=== PATIENT | female | born 2000 | race Caucasian/White ===

== ENCOUNTER → 2023-03-19 09:17 | Outpatient (BNVA) | payer BC, SELFPAY | PROVIDERS: PCP Registered Nurse; Visit Provider Physician Assistant ==

== ENCOUNTER 2023-04-04 08:30 | Outpatient (AMB) | payer BC, SELFPAY ==
--- NOTE | 2023-04-04 08:39 | A.OFFVIS_ITS ---
Intake Intake Visit Reasons: TV MWL BMI 35.0 Allergies No Known Allergies Allergy (Verified 03/19/23 09:32) Medication List - Last Reconciled 04/04/23 by Joelle Charles PA-C albuterol sulfate 90 mcg/actuation 1 inh inhalation QID bupropion HCl 150 mg PO DAILY sertraline 50 mg PO DAILY HPI HPI Comments History of Present Illness Details This is a 22 year old woman who wants to start MWL progra. Her goal is to feel better. Wants to lose 50 - 60 lbs. . She reports first being concerned about her weight 2 years ago. She has tried multiple methods of weight loss including exercise, Keto, shakes, without permanent results. She lives with b oyfriend. She works 5 -6 days per week from 8:30 - 4:30. Second job 2-3 d/week 5pm - 7:30 pm. Had labs including TSH done over last 2 months. Pt will get me results of testing. She wakes at: 7am bed at 9:30- 10 am Breakfast: coffee - 2-3 cups with creamer. 9am - bagel with cream cheese Or Yogurt (low fat vanilla) with strawberries Lunch:12 - 1pm - salad with cheese and salami with Caesar dressing. water. brings it with her. Dinner: 7:30 pm - chicken or steak, pasta and green beans or corn. Water or whole milk After dinner: nothing Other snacks: granola bar or pop tarts - but normally doesn't snack. Liquids: Rarely soda, OJ once per month, no other sweetened drinks Alcohol intake: once per week 1-2 Margaritas, tobacco: none, marijuana: none Exercise:none, has stationary bike at home - in storage now control method: IUD STEFFI: 2 ESS:2 GERD:0 QOL: 90 PFSH Surgical History (Updated 03/19/23 @ 09:33 by Sara Mcdonough CMA) Hx of wisdom tooth extraction Hx of colonoscopy Family History (Updated 03/19/23 @ 09:34 by Sara Mcdonough CMA) Mother Breast cancer Melanoma Thyroid condition Father Hypertension Brother No problems noted. Social History (Updated 03/19/23 @ 09:33 by Sara Mcdonough CMA) Alcohol intake: current Alcohol intake frequency: a few times a month Patient Tobacco Use Status: Never used Tobacco Assessment & Plan Assessment & Plan (1) Obesity: Code(s): E66.9 - Obesity, unspecified Plan: This is a 22 yo woman with obesity who will start MWL program. She will start MWL classes and watch them before her next appt with Ayleen. 1. Adequate sleep of 7-8 hours per night discussed 2. Healthy meal plan - stop all sweetened drinks All meals/MR's need to take 20 minutes to complete Coffee - 2% milk 9 am - plain Hungarian 5 oz and 1/2 cup fresh berries 12 pm - salad 8 oz vegetables, 5 oz lean protein. olive oil or avocado oil and vinegar 3 - 3:30 pm- protein bar, 2-3 hb eggs, yogurt 7 pm- dinner of 6 oz lean protein, 8 oz vegetable, 1 serving fruit ETOH drinks - unsweetened Exercise - will get gym membership Cardio 4 d week goal 2,000/week. treadmill at speed 3.0, incline 2-5 - to burn 300 calories. average 10 ayush/min. Stationary bike 1-2 d/week - 200 - 300 over 60 minutes. Pt will purchase body composition analyzer (recommended list given to patient) and weight herself weekly. Next appt with me in 3 weeks. Text me with any questions and weekly weights. Patient is morbidly obese and is not considered stable at this time.?I spent a total of 60 minutes reviewing/updating records, examining the patient and counseling the patient on weight management as detailed above. (2) Anxiety: Code(s): F41.9 - Anxiety disorder, unspecified Plan: exercise (3) Asthma: Code(s): J45.909 - Unspecified asthma, uncomplicated Plan: no changes Telehealth Telehealth Location of provider rendering services: practice address Location of patient: address on file Patient Identification confirmed using: Name, : Yes Telehealth method: video Patient verbally consented to treatment: Yes Patient verbally consented to billing insurance company: Yes Patient informed of any privacy concerns related to visit: Yes Coding Level of Care Code Tele New Pt Level 5 (57646) Diagnoses Obesity E66.9 Anxiety F41.9 Asthma J45.909
== END 2023-04-04 09:34 | disposition home or self-care (01) ==
LOC: HO.HBS 08:45
PROVIDERS: PCP Registered Nurse; Visit Provider Physician Assistant
DX: E66.9 Obesity, unspecified (principal); Z68.35 Body mass index [BMI] 35.0-35.9, adult; F41.9 Anxiety disorder, unspecified; J45.909 Unspecified asthma, uncomplicated
CPT/HCPCS: 99205

== ENCOUNTER → 2023-04-04 08:30 | Outpatient (BNVA) | payer BC, SELFPAY | PROVIDERS: PCP Registered Nurse; Visit Provider Physician Assistant ==

== ENCOUNTER 2023-05-03 15:58 | Outpatient (AMB) | payer BC, SELFPAY ==
--- NOTE | 2023-05-03 14:59 | MHC.AMNUTRGE ---
Intake VS Expanded 05/03/23 16:09 Height 5 ft 6 in Weight 214 lb BMI 34.5 Intake Visit Reasons: VIDEO Initial Nutrition [facility] Security Control Assessor Required: No Allergies No Known Allergies Allergy (Verified 03/19/23 09:32) HPI Nutrition Presentation Details [facility] start date (04/04/23) b current weight 214# Reason for consult elevated BMI Diet Assmnt Details overnight oats - peanut butter, benny seeds, 2% and blueberries sinhala yogurt wth berries salad with chicken, cucumbers dinner chicken, steak ,sweet potatoes Using Clinc! it ash. Elliptical, or treadmill 3-4x per week, 30-35 minutes Dietary counseling reduction Who buys your food self Who prepares/cooks your food self Meal frequency regular: breakfast (bagel w cc and coffee), lunch and dinner and irregular: snacks Lifestyle Reads food labels Yes Food frequency Dairy: daily, Fruit: daily, Vegetables: daily, Grains/pasta/breads/cereal (carbs): daily, Meats/poultry/fish (protein): daily (not seafood) and Alcohol: several times weekly Diagnosis Nutrition problem #1 overweight/obesity As related to (etiology) #1 excess energy intake and physical inactivity As evidenced by (sign/symptom) #1 high BMI Monitoring/Goals Nutrition problem monitoring total energy intake, level of knowledge/skill, total PRO intake, total CHO intake and weight Outcome progress progressing Learning/Education Readiness to learn excellent Stages of change action Educational materials provided Yes Most Recent Diabetes Results: No Data to Display [facility] Surgical History (Updated 03/19/23 @ 09:33 by Sara Mcdonough CMA) Hx of wisdom tooth extraction Hx of colonoscopy Family History (Updated 03/19/23 @ 09:34 by Sara Mcdonough CMA) Mother Breast cancer Melanoma Thyroid condition Father Hypertension Brother No problems noted. Social History (Updated 03/19/23 @ 09:33 by Sara Mcdonough CMA) Alcohol intake: current Alcohol intake frequency: a few times a month Patient Tobacco Use Status: Never used Tobacco Assessment & Plan Assessment & Plan (1) Obesity (BMI 30-39.9): Code(s): E66.9 - Obesity, unspecified Plan: provided easy to make meal ideas, recipe resources, reiterated the importance of protein and aiming for 20-30g protein meal. Also gave recommended bars and shakes list for when she doesn't have time to put a meal together. F/u in MWL program 1 MO Telehealth Telehealth Location of provider rendering services: practice address Location of patient: address on file Patient Identification confirmed using: Name, : Yes Telehealth method: video Patient verbally consented to treatment: Yes Patient verbally consented to billing insurance company: Yes Patient informed of any privacy concerns related to visit: Yes Minutes spent on Phone/Video with Pt.: 20 Coding Level of Care Code Nutr Indiv Intake (36744) Diagnoses Obesity (BMI 30-39.9) E66.9 Time Spent (min) 20
[2023-05-03 16:09] VITALS: BMI 34.5
== END 2023-05-03 16:06 | disposition home or self-care (01) ==
LOC: HO.HBS 15:58
PROVIDERS: PCP Registered Nurse; Visit Provider Dietitian, Registered
DX: E66.9 Obesity, unspecified (principal)

== ENCOUNTER → 2023-05-03 15:58 | Outpatient (BNVA) | payer BC, SELFPAY | PROVIDERS: PCP Registered Nurse; Visit Provider Dietitian, Registered | DX: E66.9 Obesity, unspecified (principal); Z68.34 Body mass index [BMI] 34.0-34.9, adult; Z71.3 Dietary counseling and surveillance | CPT/HCPCS: 97802 ==

== ENCOUNTER 2023-06-27 13:45 | Outpatient (REF) | payer BC, SELFPAY ==
--- NOTE | ~2023-06-27 | MM_ITS ---
EXAMINATION: MM DIAGNOSTIC DIGITAL BREAST TOMOSYNTHESIS, BILATERAL US DIAGNOSTIC ULTRASOUND BREAST, LEFT CLINICAL INFORMATION: 22-year-old female complaining of palpable abnormality and left posterior axilla. Patient has strong family history of breast CA in mother at 47. Patient states the palpable lump is decreasing in size over a few months. COMPARISON: None available. Baseline exam. TECHNIQUE: Digital breast tomosynthesis is performed in both the craniocaudal and mediolateral oblique views along with computer-aided detection (CAD). Synthesized 2D images are generated from the tomosynthesis. In addition to standard views, 3-D spot compression left CC and left MLO x2 views were obtained. FINDINGS: The breasts are heterogeneously dense, which may obscure small masses (ACR BI-RADS breast composition Category c). There are no suspicious masses, suspicious grouped calcifications, or areas of architectural distortion in either breast. No skin or axillary abnormalities. The area of palpable concern in the left posterior axilla is too high to be imaged on the left MLO view. ULTRASOUND: Ultrasound of the left breast/axilla is performed with real-time denny scale imaging and color Doppler. Attention was given to the left axilla in the region of palpable concern. FINDINGS: In the left axilla, posterior mid aspect, there is a small subcutaneous 7 mm lymph node with normal fatty hilum and normal thickness cortex. There is good through transmission. There is no associated hyperemia. There is normal morphology of the node. This finding is benign. There are no additional masses, cystic abnormalities, or abnormal regions of shadowing. MM/MM tomosynthesis diagnostic BI IMPRESSION: -No findings suspicious for malignancy in either breast. -Palpable abnormality in the left axilla is consistent with a benign left axillary lymph node. No further follow-up of this is recommended. -Recommend the patient begin routine screening mammography at age 35. ASSESSMENT: BI-RADS 2 - Benign Findings RECOMMENDATION: Mammo at 40 or earlier if clinically needed This patient's information was entered into a reminder system with a target due date for their next mammogram.
== END 2023-06-27 13:46 | disposition home or self-care (01) ==
LOC: HO.MAMMO 13:45
PROVIDERS: PCP Registered Nurse; Visit Provider Registered Nurse
DX: N63.32 Unspecified lump in axillary tail of the left breast (principal)
CPT/HCPCS: 76642; 77062; 77066

== ENCOUNTER → 2023-06-27 14:00 | Outpatient (BNV) | payer BC, SELFPAY | PROVIDERS: PCP Registered Nurse; Visit Provider Radiology Diagnostic Radiology | DX: N63.20 Unspecified lump in the left breast, unspecified quadrant (principal) | CPT/HCPCS: 76642; 77062; 77066 ==